=== PATIENT | male | born 1975 | race American Indian/Alaskan Native ===

== ENCOUNTER 2019-07-28 21:56 | Emergency (ER) | payer SELFPAY ==
[2019-07-28 22:55] LABS: Basophils # (Auto) 0.1 K/mm3 (0.0-0.1); Basophils % (Auto) 1.2 % (0.0-1.8); Eosinophils % (Auto) 0.6 % (0.0-4.3); Hematocrit 37.5 % (35.5-45.6); Hemoglobin 12.6 gm/dl (11.8-15.2); Lymphocytes # (Auto) 2.1 K/mm3 (1.2-5.4); Mean Corpuscular HGB Conc 34 % (32-34); Mean Corpuscular Volume 93 fl (84-94); Monocytes # (Auto) 0.9 K/mm3 (0.0-0.8); Monocytes % (Auto) 10.8 % (0.0-7.3); Platelet Count 176 K/mm3 (140-440); Red Blood Count 4.03 M/mm3 (3.65-5.03); Red Cell Distribution Width 14.1 % (13.2-15.2)
[2019-07-28 23:20] LABS: BUN/Creatinine Ratio 10; Blood Urea Nitrogen 8 mg/dL (9-20); Calcium 8.7 mg/dL (8.4-10.2); Hemolysis Index 3
--- NOTE | 2019-07-28 23:29 | XRay Report ---
CHEST 1 VIEW INDICATION / CLINICAL INFORMATION: Chest Pain. COMPARISON: None available. FINDINGS: SUPPORT DEVICES: None. HEART / MEDIASTINUM: No significant abnormality. LUNGS / PLEURA: No significant pulmonary or pleural abnormality. No pneumothorax. ADDITIONAL FINDINGS: No significant additional findings. IMPRESSION: 1. No significant change Signer Name: Elias Alatorre MD Signed: 07/28/2019 11:25 PM Workstation Name: [id number]
[2019-07-29 02:39] VITALS: BP 105/70
== END 2019-07-29 02:41 | disposition left against medical advice (07) ==
LOC: ED 21:56
DX: R07.89 Other chest pain (principal); Z53.21 Procedure and treatment not carried out due to patient leaving prior to being seen by health care provider
CPT/HCPCS: 36415; 71045; 80048; 83880; 84484; 85025; 93005; 93010

== ENCOUNTER 2021-04-13 21:51 | Emergency (ER) | payer SELFPAY ==
[2021-04-13 23:41] VITALS: BP 119/84
--- NOTE | 2021-04-14 04:13 | Emergency Department Report ---
ED General Adult HPI - General Chief complaint: Rectal Pain Stated complaint: N/A Source: patient Mode of arrival: Ambulatory Limitations: No Limitations - History of Present Illness Initial comments: Patient is a 45-year-old -Tong[place] male with no past medical history presents to the ED with complaint of acute onset persistent rectal pain for the last 4 days. 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 Patient states that the pain is worse with sitting especially when driving. Patient denies rectal bleeding, abdominal pain, nausea, vomiting, dysuria, hematuria, testicular pain, penile discharge, chest pain or shortness of breath, dizziness or syncope. MD Complaint: rectal pain -: Sudden, days(s) (4) Location: buttocks (Rectal pain) Radiation: non-radiation Severity scale (0 -10): 7 Quality: aching, sharp Consistency: constant Improves with: none Worsens with: movement, other (Bowel movement) Associated Symptoms: denies other symptoms. denies: confusion, chest pain, cough, diaphoresis, fever/chills, headaches, loss of appetite, malaise, nausea/vomiting, rash, seizure, shortness of breath Treatments Prior to Arrival: none - Related Data Previous Rx's Medication Instructions Recorded Last Taken Type Chlorhexidine Mouthwash [Peridex] 15 ml MM QID #1 bottle 04/21/15 Unknown Rx Clindamycin Palmitate (Nf) 450 mg PO QID #100 ml 04/21/15 Unknown Rx [Cleocin Palmitate ORAL SOLN] Dibucaine 1% [Nupercainal] 1 applicatio SC TID #1 tube 04/14/21 Unknown Rx Docusate Sodium [Dok] 100 mg PO Q12H #60 tablet 04/14/21 Unknown Rx Hydrocortisone [Anusol-Hc 2.5% TOP 1 applic RC Q12H #1 cream..g. 04/14/21 Unknown Rx CREAM] Naproxen 500 mg PO Q12H PRN #24 tablet 04/14/21 Unknown Rx Allergies Allergy/AdvReac Type Severity Reaction Status Date / Time Penicillins Allergy Unknown Verified 04/13/21 23:31 ED Review of Systems ROS: Stated complaint: N/A Other details as noted in HPI Constitutional: denies: chills, fever Eyes: denies: eye pain, eye discharge, vision change ENT: denies: ear pain, throat pain Respiratory: denies: cough, shortness of breath, wheezing Cardiovascular: denies: chest pain, palpitations Endocrine: no symptoms reported Gastrointestinal: other (Rectal pain). denies: abdominal pain, nausea, diarrhea Genitourinary: denies: urgency, dysuria Musculoskeletal: denies: back pain, joint swelling, arthralgia Skin: denies: rash, lesions Neurological: denies: headache, weakness, paresthesias Psychiatric: denies: anxiety, depression Hematological/Lymphatic: denies: easy bleeding, easy bruising ED Past Medical Hx - Past Medical History Previous Medical History?: No Additional medical history: L jaw fx - Social History Smoking Status: Current Every Day Smoker Substance Use Type: Alcohol - Medications Home Medications: Home Medications Medication Instructions Recorded Confirmed Last Taken Type Chlorhexidine Mouthwash [Peridex] 15 ml MM QID #1 bottle 04/21/15 Unknown Rx Clindamycin Palmitate (Nf) 450 mg PO QID #100 ml 04/21/15 Unknown Rx [Cleocin Palmitate ORAL SOLN] Dibucaine 1% [Nupercainal] 1 applicatio SC TID #1 tube 04/14/21 Unknown Rx Docusate Sodium [Dok] 100 mg PO Q12H #60 tablet 04/14/21 Unknown Rx Hydrocortisone [Anusol-Hc 2.5% TOP 1 applic RC Q12H #1 cream..g. 04/14/21 Unknown Rx CREAM] Naproxen 500 mg PO Q12H PRN #24 tablet 04/14/21 Unknown Rx ED Physical Exam - General Limitations: No Limitations General appearance: alert, in no apparent distress - Head Head exam: Present: atraumatic, normocephalic, normal inspection - Eye Eye exam: Present: normal appearance, PERRL, EOMI Pupils: Present: normal accommodation - ENT ENT exam: Present: normal exam, normal orophraynx, mucous membranes moist, TM's normal bilaterally, normal external ear exam - Neck Neck exam: Present: normal inspection, full ROM. Absent: tenderness - Respiratory Respiratory exam: Present: normal lung sounds bilaterally. Absent: respiratory distress, wheezes, stridor, chest wall tenderness, accessory muscle use, decreased breath sounds, prolonged expiratory - Cardiovascular Cardiovascular Exam: Present: regular rate, normal rhythm, normal heart sounds. Absent: systolic murmur, diastolic murmur, rubs, gallop - GI/Abdominal GI/Abdominal exam: Present: soft, normal bowel sounds. 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 Lovell) - Extremities Exam Extremities exam: Present: normal inspection, full ROM, normal capillary refill - Back Exam Back exam: Present: normal inspection, full ROM, paraspinal tenderness. Absent: tenderness, CVA tenderness (R), CVA tenderness (L), muscle spasm, vertebral ten derness - Neurological Exam Neurological exam: Present: alert, oriented X3, CN II-XII intact, normal gait, reflexes normal - Psychiatric Psychiatric exam: Present: normal affect, normal mood - Skin Skin exam: Present: warm, dry, intact, normal color. Absent: rash ED Course Vital Signs 04/13/21 23:31 Temperature 98.7 F Pulse Rate 93 H Respiratory 20 Rate Blood Pressure 119/84 O2 Sat by Pulse 98 Oximetry ED Medical Decision Making - Medical Decision Making This is a 45-year-old -[place] male with no past medical history presents to the ED with complaint of acute onset persistent rectal pain for the last 4 days. 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 Patient states that the pain is worse with sitting especially when driving. In the ED, patient is alert and oriented x3 and is not in any distress. Physical exam showed palpable moderately tender external hemorrhoids with no bleeding. Patient was therefore discharged home on medications and advised to soak himself in the sitz bath's and apply medications for pain as needed. Patient was also encouraged to increase fiber intake and drink plenty fluids to minimize and control constipation. Patient was therefore discharged home on medications and advised to follow-up with his primary care physician in 5 to 7 days or return to the ED immediately if symptoms get worse. - Differential Diagnosis External hemorrhoids; chronic constipation; anal fissures; rectal abscess Critical care attestation.: If time is entered above; I have spent that time in minutes in the direct care of this critically ill patient, excluding procedure time. ED Disposition Clinical Impression: External hemorrhoids without complication, Chronic constipation Disposition: 01 HOME / SELF CARE / HOMELESS Is pt being admited?: No Does the pt Need Aspirin: No Condition: Stable Instructions: Constipation, Adult, [id number], Hemorrhoids, [id number], Nonsurgical Procedures for Hemorrhoids, Care After Additional Instructions: Take medication with food, drink plenty of fluids, increase your fiber intake by eating a lot of high-fiber vegetables. Follow-up with your primary care physician in 7 to 10 days for reevaluation. Return to the ED immediately if symptoms get worse. Prescriptions: Hydrocortisone [Anusol-Hc 2.5% TOP CREAM] 1 applic RC Q12H #1 cream..g. Docusate Sodium [Dok] 100 mg PO Q12H #60 tablet Naproxen 500 mg PO Q12H PRN #24 tablet PRN Reason: Pain , Severe (7-10) Dibucaine 1% [Nupercainal] 1 applicatio SC TID #1 tube Referrals: [facility] [Provider Group] - 7-10 days Time of Disposition: 04:18 Print Language: CENTRAL AFRICAN
== END 2021-04-14 04:30 | disposition home or self-care (01) ==
LOC: ED 21:51
DX: K64.4 Residual hemorrhoidal skin tags (principal); K59.00 Constipation, unspecified; G89.29 Other chronic pain; F17.200 Nicotine dependence, unspecified, uncomplicated; Z72.89 Other problems related to lifestyle; Z88.0 Allergy status to penicillin; Z79.899 Other long term (current) drug therapy
CPT/HCPCS: 99282